=== PATIENT | male | born 1970 | race Caucasian/White ===

== ENCOUNTER 2019-01-27 15:50 | Emergency (ER) | payer SELFPAY ==
[~2019-01-27] VITALS: Ht 157.5 cm; Wt 67.0 kg
[2019-01-27 15:54] VITALS: Ht 157.5 cm; Wt 67.0 kg
[2019-01-27] MEDS ORDERED: ONDANSETRON 4 MG INJ IV STA ×2 (16:16→18:23)
[2019-01-27] MEDS ORDERED: morphine 4 MG/ML VIAL IV STA (16:16)
--- NOTE | 2019-01-27 16:22 | ERD ---
ER Documentation Chief Complaint Chief Complaint LEFT GROIN PAIN/HERNIA NOT ABLE TO PUSHED BACK HPI 48-year-old male with history of a left inguinal hernia for many years that is intermittently painful but usually easily reducible presents to the ED complaining of a 1 day history of worsening, sharp, severe, nonradiating left inguinal pain and inability to reduce the hernia that came out while walking. Denies abdominal pain, nausea or vomiting. No testicular pain. No dysuria or polyuria. No fevers or chills. ROS All systems reviewed and are negative except as per history of present illness. Medications Home Meds No Active Prescriptions or Reported Meds Allergies Allergies: Coded Allergies: No Known Allergy (Unverified , 01/27/19) PMhx/Soc History of Surgery: No Hx Neurological Disorder: No Hx Respiratory Disorders: No Hx Cardiac Disorders: No Hx Psychiatric Problems: No Hx Miscellaneous Medical Probl: Yes (Hernia) Hx Alcohol Use: No Hx Substance Use: No Hx Tobacco Use: Yes Smoking Status: Current every day smoker (Less than 5 cigarettes/day) FmHx Brother: Diabetes. No family history of cancer. Physical Exam Vitals Vital Signs Date Temp Pulse Resp B/P (MAP) Pulse Ox O2 O2 Flow FiO2 Time Delivery Rate 01/27/19 98.1 84 12 119/67 100 Room Air 18:50 (84) 01/27/19 75 17 115/75 100 Room Air 18:04 (88) 01/27/19 85 17 118/71 100 Room Air 16:54 (87) 01/27/19 98.1 89 18 137/71 99 15:54 (93) Physical Exam Const: Severe distress due to pain Head: Atraumatic Eyes: Normal Conjunctiva. Anicteric ENT: Normal External Ears, Nose and Mouth. Neck: Full range of motion. Nontender. Resp: Clear to auscultation bilaterally Cardio: Regular rate and rhythm, no murmurs Abd: Soft, non tender, non distended. No rebound or guarding. Normal bowel sounds. Left inguinal hernia: Very tender to palpation. No skin changes. : No scrotal swelling, erythema or tenderness. Skin: No petechiae or rashes Back: No midline or CVA tenderness Ext: No cyanosis, or edema Neur: Awake and alert. No focal deficit. Psych: Anxious but not depressed. Results 24 hrs Current Medications Medications Dose Sig/Letty Start Time Status Last (Trade) Ordered Route PRN Stop Time Admin Dose Reason Admin Morphine 4 mg ONCE STAT 01/27/19 DC 01/27/19 Sulfate IV 16:16 16:24 (morphine) 01/27/19 16:17 Ondansetron 4 mg ONCE STAT 01/27/19 DC 01/27/19 HCl (Zofran IV 16:16 16:24 Inj) 01/27/19 16:17 1 mg ONCE STAT 01/27/19 DC 01/27/19 Hydromorphone IV 16:38 16:40 HCl 01/27/19 16:39 (Dilaudid) Ondansetron 4 mg ONCE STAT 01/27/19 DC 01/27/19 HCl (Zofran IV 18:23 18:35 Inj) 01/27/19 18:24 Procedures/MDM DOCUMENTS REVIEWED: ED nurse, no prior records PROCEDURE NOTE: Reduction of incarcerated hernia. Analgesia was provided with morphine 4 mg IV and subsequently Dilaudid 1 mg IV. Patient was placed in the supine position and gentle, constant pressure was applied to the hernia which was reduced without difficulty. Postreduction abdomen is soft and nontender. Pain completely resolved. REEXAMINATION/REEVALUATION: Time: 18:20. Doing well. Pain resolved. Abdomen soft nontender. Mild nausea treated with Zofran. No vomiting. Tolerating p.o.'s. MEDICAL DECISION MAKIN-year-old male with history of a left inguinal hernia for many years that is intermittently painful but usually easily reducible presents to the ED complaining of a 1 day history of moderate, worsening, sharp, nonradiating left inguinal pain and inability to reduce the hernia. Patient presents with an incarcerated left inguinal hernia. There is no evidence of strangulation. After adequate analgesia hernia was reduced without difficulty. Pain resolved and patient completely asymptomatic. CT scan of the abdomen considered but not indicated as abdominal exam is completely benign without tenderness, rebound, guarding, signs of bowel obstruction or peritonitis. Stabl e for discharge with precautionary instructions and outpatient follow-up as counseled. Smoking Cessation Therapy: Pt. was lectured for greater than 3 minutes on the health risks of continued smoking and the benefits of cessation. Counseled patient regarding diagnostic workup, diagnosis and need for followup. Understands to return to ED if symptoms recur, worsen or any other concerns. Departure Diagnosis: Primary Impression: Severe left groin pain Additional Impression: Incarcerated left inguinal hernia Condition: Stable (Improved) ESTEPHANIA BURNS MD Jan 27, 2019 16:22
[2019-01-27] MEDS ORDERED: HYDROmorphONE 2 MG/ML SYG IV STA (16:38)
[2019-01-27 18:50] VITALS: BP 119/67; PULSE 84; RESP 12
== END 2019-01-27 18:50 | disposition home or self-care (01) ==
LOC: E/R 15:50
DX: K40.90 Unilateral inguinal hernia, without obstruction or gangrene, not specified as recurrent (principal); F17.210 Nicotine dependence, cigarettes, uncomplicated
CPT/HCPCS: 96374; 96375; 96376; 99284; J1170; J2270; J2405